=== PATIENT | female | born 1935 | race Caucasian/White ===

== ENCOUNTER → 2017-02-27 | Outpatient (CLI) | payer MEDICARE ==
[~2017-02-27] MED LIST: ASPIR 8181 MG PO; CEFUROXIME250 MG PO; CITALOPRAM HBR10 MG PO; FERROUS SULFAT325 MG PO; HUMALOG100 UNIT/1 SQ; LANTUS100 UNIT/1 SQ; LEVOTHYROXINE100 MCG PO; LIPITOR TAB 2020 MG PO; METOPROLOL TART50 MG PO; NORVASC 5 MG TAB5 MG PO; NOVOLOG100 UNIT/1 SC; OMNICEF 300 MG300 MG PO; ONE DAILY WOME1 EAC1 PO; PLAVIX 75 MG TA75 MG PO; POTASSIUM CHLO10 MEQ PO; RAMIPRIL10 MG PO; ZOFRAN4 MG PO; [UNRECOGNIZED DRUG - CODE] IV
== END ==
LOC: OPSV 12:00
DX: Z45.2 Encounter for adjustment and management of vascular access device (principal); A49.02 Methicillin resistant Staphylococcus aureus infection, unspecified site

== ENCOUNTER 2017-07-16 22:18 | Inpatient (IN) | payer MEDICARE ==
[~2017-07-16] VITALS: Ht 160 cm; Wt 54.9 kg
[~2017-07-16 22:18] MED LIST changes: -CEFUROXIME250 MG PO; -FERROUS SULFAT325 MG PO; -LANTUS100 UNIT/1 SQ; -NORVASC 5 MG TAB5 MG PO; -NOVOLOG100 UNIT/1 SC; -[UNRECOGNIZED DRUG - CODE] IV
[2017-07-16 23:32] LABS: HEMOGLOBIN 12.4 gm/dl (12.3-15.3); RED BLOOD COUNT 4.57 M/UL (4.00-5.10); WHITE BLOOD COUNT 9.1 K/UL (4.5-11.0)
[2017-07-18 05:46] LABS: ACINETOBACTER BAUMANNII Not Detected (Negative); CANDIDA ALBICANS Not Detected (Negative); CANDIDA KRUSEI Not Detected (Negative); CANDIDA TROPICALIS Not Detected (Negative); ENTEROCOCCUS Not Detected (Negative); ESCHERICHIA COLI Not Detected (Negative); HAEMOPHILUS INFLUENZAE Not Detected (Negative); KLEBSIELLA OXYTOCA Not Detected (Negative); KLEBSIELLA PNEUMONIAE Not Detected (Negative); KPC-CARBAPENEM-RESISTANCE GENE Not Detected (Negative); PROTEUS Not Detected (Negative); PSEUDOMONAS AERUGINOSA Not Detected (Negative); SERRATIA MARCESANS Not Detected (Negative); STAPHYLOCOCCUS AUREUS Not Detected (Negative); STREP AGALACTIAE (GROUP B) Not Detected (Negative); STREP PYOGENES (GROUP A) Not Detected (Negative); STREPTOCOCCUS Not Detected (Negative); vanA/B (VANCOMYCIN RESIST GENE Not Detected (Negative)
[2017-07-18 07:17] LABS: STAPHYLOCOCCUS DETECTED (Negative); mecA (METHICILLIN RESIST GENE DETECTED (Negative)
[2017-07-19 05:03] LABS: HEMOGLOBIN 10.1 gm/dl (12.3-15.3); RED BLOOD COUNT 3.79 M/UL (4.00-5.10); WHITE BLOOD COUNT 6.2 K/UL (4.5-11.0)
[2017-07-21 05:20] LABS: HEMOGLOBIN 10.4 gm/dl (12.3-15.3); RED BLOOD COUNT 3.85 M/UL (4.00-5.10); WHITE BLOOD COUNT 6.5 K/UL (4.5-11.0)
[2017-07-22 05:15] LABS: HEMOGLOBIN 10.8 gm/dl (12.3-15.3); RED BLOOD COUNT 4.01 M/UL (4.00-5.10); WHITE BLOOD COUNT 7.5 K/UL (4.5-11.0)
[2017-07-23 05:23] LABS: HEMOGLOBIN 10.4 gm/dl (12.3-15.3); RED BLOOD COUNT 3.86 M/UL (4.00-5.10); WHITE BLOOD COUNT 6.3 K/UL (4.5-11.0)
[2017-07-24 05:33] LABS: HEMOGLOBIN 10.7 gm/dl (12.3-15.3); RED BLOOD COUNT 3.94 M/UL (4.00-5.10)
[2017-07-28 05:05] LABS: HEMOGLOBIN 9.7 gm/dl (12.3-15.3); RED BLOOD COUNT 3.57 M/UL (4.00-5.10); WHITE BLOOD COUNT 7.8 K/UL (4.5-11.0)
[2017-07-29 05:26] LABS: HEMOGLOBIN 9.4 gm/dl (12.3-15.3); RED BLOOD COUNT 3.44 M/UL (4.00-5.10); WHITE BLOOD COUNT 7.6 K/UL (4.5-11.0)
[2017-07-30 04:59] LABS: HEMOGLOBIN 9.4 gm/dl (12.3-15.3)
[2017-07-31] MEDS ORDERED: NORVASC 5 MG TAB5 MG PO (11:44)
[2017-07-31] MEDS ORDERED: CEFUROXIME250 MG PO (11:47)
[2017-07-31] MEDS ORDERED: [UNRECOGNIZED DRUG - CODE] IV (11:49)
[2017-07-31] MEDS ORDERED: NOVOLOG100 UNIT/1 SC (11:53)
[2017-07-31] MEDS ORDERED: LANTUS100 UNIT/1 SQ (17:06)
[2017-07-31] MEDS ORDERED: FERROUS SULFAT325 MG PO (17:06)
== END 2017-07-31 11:10 | DRG 638 ==
LOC: ER1 22:18 → ZEROF 07-17 06:48 → MED SURG 4 07-17 20:33 → M/S 07-20 11:00
PROVIDERS: Family Medicine; Internal Medicine; Internal Medicine Infectious Disease; Physician Assistant Medical; ADMIT Internal Medicine
PROC: 02HV33Z Insertion of Infusion Device into Superior Vena Cava, Percutaneous Approach (ICD-10-PCS; principal; 2017-07-25)
PROC: B548ZZA Ultrasonography of Superior Vena Cava, Guidance (ICD-10-PCS; 2017-07-25)
DX: E11.69 Type 2 diabetes mellitus with other specified complication (principal); M86.661 Other chronic osteomyelitis, right tibia and fibula; N30.01 Acute cystitis with hematuria; R78.81 Bacteremia; I25.10 Atherosclerotic heart disease of native coronary artery without angina pectoris; E87.6 Hypokalemia; L89.152 Pressure ulcer of sacral region, stage 2; L89.620 Pressure ulcer of left heel, unstageable; R00.1 Bradycardia, unspecified; E03.9 Hypothyroidism, unspecified; E11.65 Type 2 diabetes mellitus with hyperglycemia; E11.649 Type 2 diabetes mellitus with hypoglycemia without coma; D50.9 Iron deficiency anemia, unspecified; E78.5 Hyperlipidemia, unspecified; B96.4 Proteus (mirabilis) (morganii) as the cause of diseases classified elsewhere; N93.9 Abnormal uterine and vaginal bleeding, unspecified; K56.41 Fecal impaction; I27.2 Other secondary pulmonary hypertension; I08.1 Rheumatic disorders of both mitral and tricuspid valves; E83.42 Hypomagnesemia; M19.90 Unspecified osteoarthritis, unspecified site; Z95.1 Presence of aortocoronary bypass graft; Z86.14 Personal history of Methicillin resistant Staphylococcus aureus infection; Z87.440 Personal history of urinary (tract) infections; Z72.3 Lack of physical exercise; Z74.01 Bed confinement status; Z79.4 Long term (current) use of insulin; Z79.02 Long term (current) use of antithrombotics/antiplatelets; Z79.82 Long term (current) use of aspirin; Z79.899 Other long term (current) drug therapy; Z98.890 Other specified postprocedural states; Z82.49 Family history of ischemic heart disease and other diseases of the circulatory system
CPT/HCPCS: 36415; 51701; 73564; 76830; 80048; 80053; 80202; 81001; 82947; 82962; 83036; 83540; 83735; 84100; 84132; 84439; 84443; 85014; 85018; 85025; 85027; 86140; 87040; 87077; 87086; 87150; 87186; 93005; 96365; 96375; 97110; 97116; 97530; 97535; 99285; G0378; J0696; J1335; J1815; J3370; J7050; J7070; Q9962

== ENCOUNTER → 2017-08-12 | Outpatient (CLI) | payer MEDICARE ==
[~2017-08-12] MED LIST changes: +CEFUROXIME250 MG PO; +FERROUS SULFAT325 MG PO; +LANTUS100 UNIT/1 SQ; +NORVASC 5 MG TAB5 MG PO; +NOVOLOG100 UNIT/1 SC; +[UNRECOGNIZED DRUG - CODE] IV
== END ==
LOC: LBRF 19:15
DX: E09.65 Drug or chemical induced diabetes mellitus with hyperglycemia (principal)
CPT/HCPCS: 81001; 87086

== ENCOUNTER 2021-05-08 19:02 | Inpatient (IN) | payer MEDICARE, MEDICAID ==
[~2021-05-08] VITALS: Ht 160 cm; Wt 72.2 kg
[~2021-05-08 19:02] MED LIST changes: +ACCUPRIL10 MG PO; -ASPIR 8181 MG PO; +ASPIRIN EC81 MG PO; +AZITHROMYCIN250 MG PO; +BASAGLAR K100 UNIT/1 SQ; +BENTYL 20MG TAB20 MG PO; +HYDRALAZINE HCL50 MG PO; +KEFLEX CAP 500500 MG PO; +LEVEMIR FL100 UNIT/1 SQ; +MEDROL DOSEPAK 24 MG PO; +NOVOLOG FL100 UNIT/1 SC; +ZOFRAN ODT 4 MG4 MG PO
[2021-05-08 19:39] LABS: HEMOGLOBIN 13.7 gm/dl (12.3-15.3); RED BLOOD COUNT 4.38 M/UL (4.00-5.10); WHITE BLOOD COUNT 17.2 K/UL (4.5-11.0)
[2021-05-08 20:04] LABS: BUN/CREATININE RATIO 16 (0-10)
[2021-05-09] MEDS ORDERED: BENTYL 20MG TAB20 MG PO (11:40)
[2021-05-10 03:21] LABS: HEMOGLOBIN 10.8 gm/dl (12.3-15.3); RED BLOOD COUNT 3.62 M/UL (4.00-5.10); WHITE BLOOD COUNT 10.2 K/UL (4.5-11.0)
[2021-05-11 03:09] LABS: HEMOGLOBIN 11.6 gm/dl (12.3-15.3); RED BLOOD COUNT 3.81 M/UL (4.00-5.10); WHITE BLOOD COUNT 7.9 K/UL (4.5-11.0)
[2021-05-12 03:21] LABS: HEMOGLOBIN 10.7 gm/dl (12.3-15.3); RED BLOOD COUNT 3.53 M/UL (4.00-5.10)
[2021-05-12 03:36] LABS: WHITE BLOOD COUNT 5.8 K/UL (4.5-11.0)
[2021-05-13 03:53] LABS: HEMOGLOBIN 10.6 gm/dl (12.3-15.3); RED BLOOD COUNT 3.49 M/UL (4.00-5.10); WHITE BLOOD COUNT 5.7 K/UL (4.5-11.0)
--- NOTE | 2021-05-13 10:26 | NUR ---
PATIENT'S DAUGHTER IS CONCERNED DUE TO COMPLAINTS OF INTERMITTENT PAIN IN RIGHT HAND/WRIST. SHE WISHES TO HAVE THIS AREA X-RAYED PRIOR TO DISCHARGE DUE TO RECENT FALL AT HOME. DISCUSSED WITH DR. TAPIA, NEW ORDERS NOTED.
[2021-05-13] MEDS ORDERED: HYDROCODON-ACE1 EAC4 PO (10:58)
[2021-05-13] MEDS ORDERED: AUGMENTIN 500-1 EACH PO (11:10)
--- NOTE | 2021-05-13 14:54 | NUR ---
WRIST SPLINT APPLIED PER PHYSICIAN'S ORDER. PATIENT TOLERATED WELL.
== END 2021-05-13 18:38 | DRG 536 ==
LOC: ER1 19:02 → CDU 05-09 01:02 → M/S 05-09 18:46
PROVIDERS: Family Medicine; Internal Medicine; ADMIT Internal Medicine
DX: S32.501A Unspecified fracture of right pubis, initial encounter for closed fracture (principal); S42.401A Unspecified fracture of lower end of right humerus, initial encounter for closed fracture; N17.9 Acute kidney failure, unspecified; N39.0 Urinary tract infection, site not specified; L89.100 Pressure ulcer of unspecified part of back, unstageable; Z20.822 Contact with and (suspected) exposure to COVID-19; W01.0XXA Fall on same level from slipping, tripping and stumbling without subsequent striking against object, initial encounter; E03.9 Hypothyroidism, unspecified; E11.9 Type 2 diabetes mellitus without complications; I25.10 Atherosclerotic heart disease of native coronary artery without angina pectoris; E78.5 Hyperlipidemia, unspecified; I10 Essential (primary) hypertension; K59.00 Constipation, unspecified; Z66 Do not resuscitate; B96.20 Unspecified Escherichia coli [E. coli] as the cause of diseases classified elsewhere; E66.9 Obesity, unspecified; L89.896 Pressure-induced deep tissue damage of other site; Y92.009 Unspecified place in unspecified non-institutional (private) residence as the place of occurrence of the external cause; Z83.3 Family history of diabetes mellitus; Z82.49 Family history of ischemic heart disease and other diseases of the circulatory system; Z90.49 Acquired absence of other specified parts of digestive tract; Z68.23 Body mass index [BMI] 23.0-23.9, adult; Z95.1 Presence of aortocoronary bypass graft; Y93.9 Activity, unspecified; Z79.02 Long term (current) use of antithrombotics/antiplatelets; Z79.890 Hormone replacement therapy; Z79.4 Long term (current) use of insulin; Z79.899 Other long term (current) drug therapy
CPT/HCPCS: 36415; 71045; 73030; 73060; 73130; 73502; 80048; 80053; 81001; 82436; 82550; 82553; 82570; 82962; 83874; 84133; 84156; 84300; 84484; 85025; 85027; 86140; 87077; 87086; 87186; 93005; 94664; 94760; 96374; 97110-GP-CQ; 97162; 97166; 97530-GP-CQ; 99285; C9113; J0696; J1335; J1644; J2405; J7030; U0002

== ENCOUNTER 2021-05-30 15:47 | Emergency (ER) | payer MEDICARE ==
[~2021-05-30 15:47] MED LIST changes: +AUGMENTIN 500-1 EACH PO; +HYDROCODON-ACE1 EAC4 PO
== END 2021-05-30 20:40 | disposition home or self-care (01) ==
LOC: ER1 15:47
DX: S32.10XA Unspecified fracture of sacrum, initial encounter for closed fracture (principal); S00.83XA Contusion of other part of head, initial encounter; S80.211A Abrasion, right knee, initial encounter; E78.5 Hyperlipidemia, unspecified; E11.9 Type 2 diabetes mellitus without complications; E03.9 Hypothyroidism, unspecified; I10 Essential (primary) hypertension; Z90.89 Acquired absence of other organs; W06.XXXA Fall from bed, initial encounter
CPT/HCPCS: 70450; 72125; 72192; 73564; 99284

== ENCOUNTER 2021-06-28 15:12 | Emergency (ER) | payer MEDICARE ==
[2021-06-28 15:49] LABS: HEMOGLOBIN 12.7 gm/dl (12.3-15.3); RED BLOOD COUNT 4.18 M/UL (4.00-5.10); WHITE BLOOD COUNT 9.2 K/UL (4.5-11.0)
[2021-06-28] MEDS ORDERED: LAXATIVE SUPPOS10 MG PR (20:58)
[2021-06-28] MEDS ORDERED: ENULOSE10 GM/15 M PO (20:58)
[2021-06-28] MEDS ORDERED: K-DUR TAB 20 M20 MEQ PO (20:58)
[2021-06-28] MEDS ORDERED: OMNICEF 300 MG300 MG PO (20:58)
== END 2021-06-29 05:45 | disposition home or self-care (01) ==
LOC: ER1 15:12
PROVIDERS: Physician Assistant
DX: N39.0 Urinary tract infection, site not specified (principal); K59.00 Constipation, unspecified; E87.6 Hypokalemia; E11.9 Type 2 diabetes mellitus without complications; E78.5 Hyperlipidemia, unspecified; I10 Essential (primary) hypertension; Z90.49 Acquired absence of other specified parts of digestive tract; Z90.89 Acquired absence of other organs; Z20.822 Contact with and (suspected) exposure to COVID-19
CPT/HCPCS: 0240U; 71045; 80053; 81001; 82550; 82553; 83690; 83874; 83880; 84439; 84443; 84484; 85025; 93005; 96374; 99285; J0696

== ENCOUNTER 2022-04-25 07:29 | Inpatient (IN) | payer MEDICARE, MEDICAID ==
[~2022-04-25] VITALS: Ht 160 cm; Wt 61.2 kg
[~2022-04-25 07:29] MED LIST changes: +CENTRAVITES 501 EACH PO; +ENULOSE10 GM/15 M PO; +K-DUR TAB 20 M20 MEQ PO; +LAXATIVE SUPPOS10 MG PR; -NOVOLOG FL100 UNIT/1 SC; +NOVOLOG FL100 UNIT/1 SQ; -ONE DAILY WOME1 EAC1 PO
[2022-04-25 07:51] LABS: HEMOGLOBIN 12.3 gm/dl (12.3-15.3); RED BLOOD COUNT 4.36 M/UL (4.00-5.10); WHITE BLOOD COUNT 7.2 K/UL (4.5-11.0)
[2022-04-25 08:21] LABS: BUN/CREATININE RATIO 24 (0-10)
[2022-04-26 03:24] LABS: HEMOGLOBIN 11.8 gm/dl (12.3-15.3); RED BLOOD COUNT 4.21 M/UL (4.00-5.10); WHITE BLOOD COUNT 6.9 K/UL (4.5-11.0)
[2022-04-27 05:24] LABS: HEMOGLOBIN 11.2 gm/dl (12.3-15.3); RED BLOOD COUNT 3.99 M/UL (4.00-5.10); WHITE BLOOD COUNT 6.2 K/UL (4.5-11.0)
[2022-04-28 05:40] LABS: HEMOGLOBIN 11.8 gm/dl (12.3-15.3); RED BLOOD COUNT 4.15 M/UL (4.00-5.10)
[2022-04-28 05:41] LABS: WHITE BLOOD COUNT 9.1 K/UL (4.5-11.0)
[2022-04-28] MEDS ORDERED: ROCEPHIN 1 GM AD1 GM IV (13:39)
[2022-04-28] MEDS ORDERED: FLORASTOR250 MG PO (13:41)
[2022-04-28] MEDS ORDERED: HYDRALAZINE HCL50 MG PO (13:48)
[2022-04-28] MEDS ORDERED: LEVOTHYROXINE100 MCG PO (13:48)
[2022-04-28] MEDS ORDERED: NOVOLOG FL100 UNIT/1 SQ (13:48)
[2022-04-28] MEDS ORDERED: CENTRAVITES 501 EACH PO (13:48)
[2022-04-28] MEDS ORDERED: BASAGLAR K100 UNIT/1 SQ (13:48)
[2022-04-28] MEDS ORDERED: LIPITOR TAB 2020 MG PO (13:48)
[2022-04-28] MEDS ORDERED: ASPIRIN EC81 MG PO (13:48)
[2022-04-28] MEDS ORDERED: PLAVIX 75 MG TA75 MG PO (13:48)
[2022-04-28] MEDS ORDERED: ACCUPRIL10 MG PO (13:48)
== END 2022-04-28 23:18 | disposition home health service (06) | DRG 299 ==
LOC: ER1 07:29 → MED SURG 4 10:30 → CDU 10:30 → MED SURG 4 20:17
PROVIDERS: Internal Medicine; Physician Assistant Medical; Student in an Organized Health Care Education/Training Program; ADMIT Internal Medicine
PROC: B24BZZZ Ultrasonography of Heart with Aorta (ICD-10-PCS; principal; 2022-04-26)
PROC: 02HV33Z Insertion of Infusion Device into Superior Vena Cava, Percutaneous Approach (ICD-10-PCS; 2022-04-28)
DX: E11.51 Type 2 diabetes mellitus with diabetic peripheral angiopathy without gangrene (principal); I50.33 Acute on chronic diastolic (congestive) heart failure; N30.00 Acute cystitis without hematuria; L97.829 Non-pressure chronic ulcer of other part of left lower leg with unspecified severity; M86.18 Other acute osteomyelitis, other site; I11.0 Hypertensive heart disease with heart failure; Z20.822 Contact with and (suspected) exposure to COVID-19; E11.69 Type 2 diabetes mellitus with other specified complication; I25.10 Atherosclerotic heart disease of native coronary artery without angina pectoris; I08.1 Rheumatic disorders of both mitral and tricuspid valves; E03.9 Hypothyroidism, unspecified; Z96.651 Presence of right artificial knee joint; E78.5 Hyperlipidemia, unspecified; Z66 Do not resuscitate; L89.152 Pressure ulcer of sacral region, stage 2; I73.9 Peripheral vascular disease, unspecified; B96.89 Other specified bacterial agents as the cause of diseases classified elsewhere; R26.89 Other abnormalities of gait and mobility; E11.621 Type 2 diabetes mellitus with foot ulcer; E87.6 Hypokalemia; Z95.1 Presence of aortocoronary bypass graft; Z90.49 Acquired absence of other specified parts of digestive tract; Z98.890 Other specified postprocedural states; Z82.49 Family history of ischemic heart disease and other diseases of the circulatory system; Z79.899 Other long term (current) drug therapy
CPT/HCPCS: ECHO; 0240U; 36415; 71045; 73630; 80048; 80053; 80202; 81001; 82550; 82553; 82962; 83036; 83735; 83880; 84100; 84132; 84484; 85025; 85027; 85652; 86140; 87070; 87077; 87081; 87086; 87186; 87205; 93005; 93306; 93926; 96374; 96375; 96376; 99285; A6212; C1751; J0696; J1650; J1940; J2543; J3370; J7030; J7070

== ENCOUNTER 2022-05-19 13:15 | Inpatient (IN) | payer MEDICARE ==
[~2022-05-19] VITALS: Ht 160 cm; Wt 63.8 kg
[~2022-05-19 13:15] MED LIST changes: +FLORASTOR250 MG PO; +ROCEPHIN 1 GM AD1 GM IV
[2022-05-19 14:46] LABS: HEMOGLOBIN 11.4 gm/dl (12.3-15.3); RED BLOOD COUNT 3.93 M/UL (4.00-5.10); WHITE BLOOD COUNT 11.6 K/UL (4.5-11.0)
[2022-05-19] MEDS ORDERED: HYDRALAZINE HCL50 MG PO (16:17)
[2022-05-19] MEDS ORDERED: BASAGLAR K100 UNIT/1 SQ (16:17)
[2022-05-19] MEDS ORDERED: CLOPIDOGREL75 MG PO (16:17)
[2022-05-19] MEDS ORDERED: LEVOTHYROXINE100 MCG PO (16:18)
[2022-05-19] MEDS ORDERED: QUINAPRIL HCL10 MG PO (16:18)
[2022-05-19] MEDS ORDERED: CEFTRIAXONE INJ (16:36)
[2022-05-19] MEDS ORDERED: ATORVASTATIN CA20 MG PO (16:37)
[2022-05-20 02:03] LABS: HEMOGLOBIN 10.9 gm/dl (12.3-15.3); RED BLOOD COUNT 3.8 M/UL (4.00-5.10); WHITE BLOOD COUNT 10.2 K/UL (4.5-11.0)
[2022-05-21 06:52] LABS: HEMOGLOBIN 9.4 gm/dl (12.3-15.3)
[2022-05-21 06:53] LABS: RED BLOOD COUNT 3.36 M/UL (4.00-5.10); WHITE BLOOD COUNT 16.5 K/UL (4.5-11.0)
[2022-05-22 06:19] LABS: HEMOGLOBIN 9.6 gm/dl (12.3-15.3); RED BLOOD COUNT 3.35 M/UL (4.00-5.10); WHITE BLOOD COUNT 13.1 K/UL (4.5-11.0)
--- NOTE | 2022-05-22 07:52 | NUR ---
PATIENT HAD CRITICAL LAB VALUE, BLOOD GLUCOSE OF 43 ON MORNING LABS. D50 GIVEN PROVIDER NOTIFED. NO NEW ORDERS AT THIS TIME. WILL CONTINUE TO MONITOR.
[2022-05-23 04:12] LABS: HEMOGLOBIN 9.4 gm/dl (12.3-15.3); RED BLOOD COUNT 3.21 M/UL (4.00-5.10); WHITE BLOOD COUNT 10.3 K/UL (4.5-11.0)
--- NOTE | 2022-05-24 11:59 | NUR ---
11:00- NOTIFIED DR ABRAHAM OF PTS BG 65 THIS MORNING. PT WAS GIVEN DEXTROSE. LAST BG CHECK WAS 183. PT BLOOD PRESSURE 82/43. NO NEW ORDERS AT THIS TIME.
[2022-05-25 06:43] LABS: HEMOGLOBIN 9.2 gm/dl (12.3-15.3); RED BLOOD COUNT 3.22 M/UL (4.00-5.10)
[2022-05-25 06:48] LABS: WHITE BLOOD COUNT 7.2 K/UL (4.5-11.0)
[2022-05-26 06:29] LABS: HEMOGLOBIN 9.6 gm/dl (12.3-15.3); RED BLOOD COUNT 3.31 M/UL (4.00-5.10); WHITE BLOOD COUNT 6.8 K/UL (4.5-11.0)
[2022-05-28] MEDS ORDERED: DAKIN'S473 M1 TOP (12:29)
[2022-05-28] MEDS ORDERED: FUROSEMIDE20 MG PO (12:29)
[2022-05-28] MEDS ORDERED: LOPRESSOR 25 MG25 MG PO (12:29)
[2022-05-28] MEDS ORDERED: NYSTATIN60 GM TOP (12:29)
[2022-05-28] MEDS ORDERED: UNASYN 1.5 GM1.5 GM IV (12:41)
[2022-05-28] MEDS ORDERED: QUINAPRIL HCL10 MG PO (12:47)
[2022-05-28] MEDS ORDERED: NOVOLOG FL100 UNIT/1 INJ (12:47)
--- NOTE | 2022-05-28 14:14 | NUR ---
Patient family notified that patient will not be discharged today because of changes in antibiotic and availability for pickup over the holiday.
[2022-05-31 12:40] LABS: HEMOGLOBIN 10.1 gm/dl (12.3-15.3); RED BLOOD COUNT 3.49 M/UL (4.00-5.10); WHITE BLOOD COUNT 7.7 K/UL (4.5-11.0)
[2022-06-01 09:14] LABS: HEMOGLOBIN 10.7 gm/dl (12.3-15.3); RED BLOOD COUNT 3.76 M/UL (4.00-5.10)
[2022-06-02 06:50] LABS: HEMOGLOBIN 9.7 gm/dl (12.3-15.3); RED BLOOD COUNT 3.34 M/UL (4.00-5.10); WHITE BLOOD COUNT 6.2 K/UL (4.5-11.0)
[2022-06-03 06:39] LABS: HEMOGLOBIN 10.2 gm/dl (12.3-15.3); RED BLOOD COUNT 3.59 M/UL (4.00-5.10); WHITE BLOOD COUNT 6.3 K/UL (4.5-11.0)
[2022-06-04 06:59] LABS: HEMOGLOBIN 9.6 gm/dl (12.3-15.3); RED BLOOD COUNT 3.37 M/UL (4.00-5.10); WHITE BLOOD COUNT 5.8 K/UL (4.5-11.0)
[2022-06-05 13:19] LABS: HEMOGLOBIN 10.3 gm/dl (12.3-15.3); RED BLOOD COUNT 3.64 M/UL (4.00-5.10); WHITE BLOOD COUNT 6.8 K/UL (4.5-11.0)
[2022-06-06 06:42] LABS: HEMOGLOBIN 9.6 gm/dl (12.3-15.3); RED BLOOD COUNT 3.31 M/UL (4.00-5.10); WHITE BLOOD COUNT 5.1 K/UL (4.5-11.0)
[2022-06-07 06:20] LABS: HEMOGLOBIN 9.8 gm/dl (12.3-15.3); RED BLOOD COUNT 3.42 M/UL (4.00-5.10); WHITE BLOOD COUNT 5.3 K/UL (4.5-11.0)
[2022-06-08 06:37] LABS: HEMOGLOBIN 10.4 gm/dl (12.3-15.3); RED BLOOD COUNT 3.59 M/UL (4.00-5.10); WHITE BLOOD COUNT 6.1 K/UL (4.5-11.0)
[2022-06-09 02:22] LABS: HEMOGLOBIN 10.1 gm/dl (12.3-15.3); RED BLOOD COUNT 3.56 M/UL (4.00-5.10); WHITE BLOOD COUNT 6.1 K/UL (4.5-11.0)
[2022-06-10 06:01] LABS: HEMOGLOBIN 9.9 gm/dl (12.3-15.3); RED BLOOD COUNT 3.4 M/UL (4.00-5.10); WHITE BLOOD COUNT 5.6 K/UL (4.5-11.0)
[2022-06-10] MEDS ORDERED: ELIQUIS 2.5 MG2.5 MG PO (12:54)
[2022-06-10] MEDS ORDERED: FERROUS GLUCON324 M1 PO (12:54)
[2022-06-10] MEDS ORDERED: IPRAT-ALBUT 0.5-3 ML NEB (12:54)
== END 2022-06-10 14:27 | disposition home health service (06) | DRG 291 ==
LOC: ER1 13:15 → CDU 16:03 → MED SURG 4 16:03
PROVIDERS: Emergency Medicine; Internal Medicine; Internal Medicine Infectious Disease; Internal Medicine Pulmonary Disease; ADMIT Internal Medicine
DX: I11.0 Hypertensive heart disease with heart failure (principal); Z20.822 Contact with and (suspected) exposure to COVID-19; G92.9 Unspecified toxic encephalopathy; I50.23 Acute on chronic systolic (congestive) heart failure; L89.153 Pressure ulcer of sacral region, stage 3; J96.21 Acute and chronic respiratory failure with hypoxia; J44.1 Chronic obstructive pulmonary disease with (acute) exacerbation; M86.8X7 Other osteomyelitis, ankle and foot; N17.9 Acute kidney failure, unspecified; F03.90 Unspecified dementia, unspecified severity, without behavioral disturbance, psychotic disturbance, mood disturbance, and anxiety; I48.91 Unspecified atrial fibrillation; E11.69 Type 2 diabetes mellitus with other specified complication; I08.1 Rheumatic disorders of both mitral and tricuspid valves; E11.51 Type 2 diabetes mellitus with diabetic peripheral angiopathy without gangrene; E78.5 Hyperlipidemia, unspecified; I25.10 Atherosclerotic heart disease of native coronary artery without angina pectoris; I42.9 Cardiomyopathy, unspecified; T36.1X5A Adverse effect of cephalosporins and other beta-lactam antibiotics, initial encounter; E87.6 Hypokalemia; E03.9 Hypothyroidism, unspecified; L89.622 Pressure ulcer of left heel, stage 2; L89.322 Pressure ulcer of left buttock, stage 2; L89.312 Pressure ulcer of right buttock, stage 2; R62.7 Adult failure to thrive; Z99.81 Dependence on supplemental oxygen; Z95.1 Presence of aortocoronary bypass graft; Z79.01 Long term (current) use of anticoagulants; I95.9 Hypotension, unspecified; Z74.01 Bed confinement status; Z90.49 Acquired absence of other specified parts of digestive tract; Z98.890 Other specified postprocedural states; Z82.49 Family history of ischemic heart disease and other diseases of the circulatory system; Z79.82 Long term (current) use of aspirin; Z68.22 Body mass index [BMI] 22.0-22.9, adult; Z79.4 Long term (current) use of insulin
CPT/HCPCS: 36415; 36600; 71045; 71250; 80048; 80053; 81001; 82140; 82272; 82550; 82553; 82607; 82803; 82962; 83540; 83550; 83605; 83735; 83880; 84132; 84443; 84484; 85025; 85027; 86140; 87070; 87077; 87086; 87186; 87205; 93005; 94640; 94760; 96374; 96375; 97110; 97110-GP-CQ; 97161; 97165; 97530; 97530-GP-CQ; 99285; A6212; J0295; J0456; J0696; J1120; J1650; J1940; J2405; J7030; P9047; U0002

== ENCOUNTER 2022-06-14 13:19 | Inpatient (IN) | payer MEDICARE ==
[~2022-06-14] VITALS: Ht 160 cm; Wt 63.2 kg
[~2022-06-14 13:19] MED LIST changes: +ATORVASTATIN CA20 MG PO; +CEFTRIAXONE INJ; +CLOPIDOGREL75 MG PO; +DAKIN'S473 M1 TOP; +ELIQUIS 2.5 MG2.5 MG PO; +FERROUS GLUCON324 M1 PO; +FUROSEMIDE20 MG PO; +IPRAT-ALBUT 0.5-3 ML NEB; +LOPRESSOR 25 MG25 MG PO; +NOVOLOG FL100 UNIT/1 INJ; +NYSTATIN60 GM TOP; +QUINAPRIL HCL10 MG PO; +UNASYN 1.5 GM1.5 GM IV
[2022-06-14 14:15] LABS: HEMOGLOBIN 10.6 gm/dl (12.3-15.3); RED BLOOD COUNT 3.67 M/UL (4.00-5.10); WHITE BLOOD COUNT 5.5 K/UL (4.5-11.0)
[2022-06-14 14:33] LABS: BUN/CREATININE RATIO 41 (0-10)
[2022-06-14] MEDS ORDERED: ASPIRIN EC81 MG PO (16:10)
[2022-06-14] MEDS ORDERED: ELIQUIS2.5 MG PO (16:10)
[2022-06-14] MEDS ORDERED: FERROUS GLUCON324 M1 PO (16:12)
[2022-06-14] MEDS ORDERED: FUROSEMIDE20 MG PO (16:12)
[2022-06-15 01:26] LABS: HEMOGLOBIN 10.3 gm/dl (12.3-15.3); RED BLOOD COUNT 3.56 M/UL (4.00-5.10); WHITE BLOOD COUNT 5.2 K/UL (4.5-11.0)
[2022-06-16 04:20] LABS: HEMOGLOBIN 10.4 gm/dl (12.3-15.3); RED BLOOD COUNT 3.59 M/UL (4.00-5.10); WHITE BLOOD COUNT 6.1 K/UL (4.5-11.0)
[2022-06-17 04:52] LABS: HEMOGLOBIN 11.5 gm/dl (12.3-15.3); RED BLOOD COUNT 3.93 M/UL (4.00-5.10); WHITE BLOOD COUNT 5.3 K/UL (4.5-11.0)
[2022-06-18 05:30] LABS: HEMOGLOBIN 10.7 gm/dl (12.3-15.3); RED BLOOD COUNT 3.74 M/UL (4.00-5.10); WHITE BLOOD COUNT 4.8 K/UL (4.5-11.0)
[2022-06-19 04:22] LABS: HEMOGLOBIN 12.1 gm/dl (12.3-15.3); WHITE BLOOD COUNT 5.1 K/UL (4.5-11.0)
[2022-06-19 04:35] LABS: RED BLOOD COUNT 4.19 M/UL (4.00-5.10)
[2022-06-19] MEDS ORDERED: FUROSEMIDE40 MG PO (10:22)
[2022-06-19] MEDS ORDERED: LEVOFLOXACIN500 MG PO (10:27)
[2022-06-19] MEDS ORDERED: VANCOMYCIN (10:27)
[2022-06-19] MEDS ORDERED: COZAAR 50MG TAB50 MG PO (10:27)
[2022-06-19] MEDS ORDERED: JARDIANCE10 MG PO (10:36)
--- NOTE | 2022-06-19 13:16 | NUR ---
report given to Iliana admitting nurse at [facility].
== END 2022-06-19 17:12 | DRG 291 ==
LOC: ER1 13:19 → M/S 15:50 → CDU 15:50 → M/S 15:50
PROVIDERS: Internal Medicine Cardiovascular Disease; Nurse Practitioner; Physician Assistant; ADMIT Internal Medicine
DX: I13.0 Hypertensive heart and chronic kidney disease with heart failure and stage 1 through stage 4 chronic kidney disease, or unspecified chronic kidney disease (principal); I50.23 Acute on chronic systolic (congestive) heart failure; J96.11 Chronic respiratory failure with hypoxia; E87.3 Alkalosis; N39.0 Urinary tract infection, site not specified; Z20.822 Contact with and (suspected) exposure to COVID-19; N18.30 Chronic kidney disease, stage 3 unspecified; E03.9 Hypothyroidism, unspecified; I25.10 Atherosclerotic heart disease of native coronary artery without angina pectoris; E11.22 Type 2 diabetes mellitus with diabetic chronic kidney disease; I08.1 Rheumatic disorders of both mitral and tricuspid valves; R62.7 Adult failure to thrive; Z66 Do not resuscitate; I42.9 Cardiomyopathy, unspecified; E88.09 Other disorders of plasma-protein metabolism, not elsewhere classified; J44.9 Chronic obstructive pulmonary disease, unspecified; E11.51 Type 2 diabetes mellitus with diabetic peripheral angiopathy without gangrene; I73.9 Peripheral vascular disease, unspecified; Z95.5 Presence of coronary angioplasty implant and graft; Z90.49 Acquired absence of other specified parts of digestive tract; Z82.49 Family history of ischemic heart disease and other diseases of the circulatory system; Z74.01 Bed confinement status; Z79.01 Long term (current) use of anticoagulants; Z79.82 Long term (current) use of aspirin; Z79.899 Other long term (current) drug therapy; Z79.4 Long term (current) use of insulin
CPT/HCPCS: 0240U; 36415; 36600; 71045; 80048; 80053; 80202; 81001; 82550; 82553; 82803; 82962; 83036; 83540; 83550; 83605; 83735; 83880; 84484; 85025; 85027; 87040; 87086; 93005; 94640; 94664; 94760; 96374; 96375; 96376; 97110-GP-CQ; 97162; 97166; 97530; 97530-GP-CQ; 99285; G0378; J0696; J1940; J2185; J2543; J3370; J7070

== ENCOUNTER 2022-08-14 21:55 | Inpatient (IN) | payer MEDICARE, MEDICAID ==
[~2022-08-14] VITALS: Ht 160 cm; Wt 63.5 kg
[~2022-08-14 21:55] MED LIST changes: +COZAAR 50MG TAB50 MG PO; +ELIQUIS2.5 MG PO; +FUROSEMIDE40 MG PO; +JARDIANCE10 MG PO; +LEVOFLOXACIN500 MG PO; +VANCOMYCIN
[2022-08-14 22:20] LABS: HEMOGLOBIN 12.3 gm/dl (12.3-15.3); RED BLOOD COUNT 4.2 M/UL (4.00-5.10); WHITE BLOOD COUNT 4.9 K/UL (4.5-11.0)
[2022-08-15 06:16] LABS: HEMOGLOBIN 11.4 gm/dl (12.3-15.3); RED BLOOD COUNT 3.93 M/UL (4.00-5.10); WHITE BLOOD COUNT 5.2 K/UL (4.5-11.0)
[2022-08-15] MEDS ORDERED: FUROSEMIDE20 MG PO (12:06)
[2022-08-15] MEDS ORDERED: NOVOLOG FL100 UNIT/1 INJ (12:06)
[2022-08-15] MEDS ORDERED: ACCUPRIL10 MG PO (12:07)
[2022-08-15] MEDS ORDERED: HYDRALAZINE HCL50 MG PO (12:07)
--- NOTE | 2022-08-16 07:30 | NUR ---
PT TEMP 93 RECTALLY. BRIAN HUGGAIR PLACED ON PT, TEMP INCREASED IN ROOM, AND MD AWARE. WILL CONTINUE TO MONITOR
[2022-08-16 10:18] LABS: HEMOGLOBIN 11.7 gm/dl (12.3-15.3); RED BLOOD COUNT 4.07 M/UL (4.00-5.10)
[2022-08-17 02:30] LABS: RED BLOOD COUNT 4.17 M/UL (4.00-5.10); WHITE BLOOD COUNT 8.9 K/UL (4.5-11.0)
--- NOTE | 2022-08-17 16:10 | NUR ---
NOTIFIED JOSE CARRILLO, PT GRANDDAUGHTER OF . SHE STATES SHE WANTS THE PT TO GO TO [facility]
--- NOTE | 2022-08-17 16:22 | NUR ---
NOTIFIED KOBE OF PTS . PT RULED OUT FOR DONATION AND OK TO RELEASE TO HOME PER MIMI LOGAN. CASE # [id number]
== END 2022-08-17 17:45 | disposition expired | DRG 871 ==
LOC: ER1 21:55 → CDU 08-15 00:42 → PROG CARE 08-15 22:29
PROVIDERS: Internal Medicine; ADMIT Internal Medicine
PROC: 3E03329 Introduction of Other Anti-infective into Peripheral Vein, Percutaneous Approach (ICD-10-PCS; principal; 2022-08-15)
PROC: 3E043XZ Introduction of Vasopressor into Central Vein, Percutaneous Approach (ICD-10-PCS; 2022-08-15)
PROC: 4A03XR1 Measurement of Arterial Saturation, Peripheral, External Approach (ICD-10-PCS; 2022-08-15)
PROC: 05HM33Z Insertion of Infusion Device into Right Internal Jugular Vein, Percutaneous Approach (ICD-10-PCS; 2022-08-16)
PROC: B543ZZA Ultrasonography of Right Jugular Veins, Guidance (ICD-10-PCS; 2022-08-16)
DX: A41.51 Sepsis due to Escherichia coli [E. coli] (principal); G93.41 Metabolic encephalopathy; R65.21 Severe sepsis with septic shock; N17.0 Acute kidney failure with tubular necrosis; N39.0 Urinary tract infection, site not specified; E87.1 Hypo-osmolality and hyponatremia; I13.0 Hypertensive heart and chronic kidney disease with heart failure and stage 1 through stage 4 chronic kidney disease, or unspecified chronic kidney disease; J96.11 Chronic respiratory failure with hypoxia; M86.672 Other chronic osteomyelitis, left ankle and foot; I48.19 Other persistent atrial fibrillation; Z16.12 Extended spectrum beta lactamase (ESBL) resistance; I50.22 Chronic systolic (congestive) heart failure; I48.0 Paroxysmal atrial fibrillation; R53.81 Other malaise; B96.20 Unspecified Escherichia coli [E. coli] as the cause of diseases classified elsewhere; E86.0 Dehydration; Z66 Do not resuscitate; F41.9 Anxiety disorder, unspecified; I25.10 Atherosclerotic heart disease of native coronary artery without angina pectoris; N18.30 Chronic kidney disease, stage 3 unspecified; E03.9 Hypothyroidism, unspecified; E11.621 Type 2 diabetes mellitus with foot ulcer; I73.9 Peripheral vascular disease, unspecified; E11.51 Type 2 diabetes mellitus with diabetic peripheral angiopathy without gangrene; I46.9 Cardiac arrest, cause unspecified; L89.622 Pressure ulcer of left heel, stage 2; L89.892 Pressure ulcer of other site, stage 2; E78.5 Hyperlipidemia, unspecified; R00.1 Bradycardia, unspecified; Z90.89 Acquired absence of other organs; Z82.49 Family history of ischemic heart disease and other diseases of the circulatory system; Z95.5 Presence of coronary angioplasty implant and graft; Z74.01 Bed confinement status; Z90.49 Acquired absence of other specified parts of digestive tract; Z79.01 Long term (current) use of anticoagulants
CPT/HCPCS: 36600; 71045; 80048; 80053; 80202; 81001; 82272; 82550; 82553; 82803; 82962; 83605; 83690; 84484; 85025; 87040; 87077; 87086; 87186; 93005; 94760; 96361; 96374; 96375; 96376; 99285; J0696; J1160; J2185; J2405; J2760; J3370; J7040; J7070